=== PATIENT | male | born 1960 | race Caucasian/White ===

== ENCOUNTER 2024-03-28 13:39 | Emergency (ER) | payer OTHER, SELFPAY ==
[2024-03-28 13:49] VITALS: BP 169/96
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
[2024-03-28] MEDS: SINEMET 25-250 1 TABLET PO (15:53)
== END 2024-03-28 16:31 | disposition home or self-care (01) ==
LOC: EMR 13:39
PROVIDERS: EMERGENCY PHYSICIAN Student in an Organized Health Care Education/Training Program; FAMILY PHYSICIAN Family Medicine
DX: Z04.1 Encounter for examination and observation following transport accident (principal); V89.2XXA Person injured in unspecified motor-vehicle accident, traffic, initial encounter; G20.A1 Parkinson's disease without dyskinesia, without mention of fluctuations; I10 Essential (primary) hypertension; E78.5 Hyperlipidemia, unspecified; E11.9 Type 2 diabetes mellitus without complications
CPT/HCPCS: 99283